=== PATIENT | female | born 1995 | race Caucasian/White ===

== ENCOUNTER → 2021-03-16 03:00 | Outpatient (CLI) | payer OTHER, SELFPAY ==
[2021-03-16 17:42] LABS: SARS-CoV-2 RNA PCR Negative
== END ==
PROVIDERS: PCP Registered Nurse; Visit Provider Registered Nurse
DX: R68.89 Other general symptoms and signs (principal); Z20.822 Contact with and (suspected) exposure to COVID-19
CPT/HCPCS: C9803; U0003; U0005

== ENCOUNTER 2024-11-01 18:13 | Emergency (ER) | payer OTHER, SELFPAY ==
[2024-11-01 18:15] VITALS: BP 125/70; PULSE 137; RESP 20; TEMP 36.7; O2SAT 98
[2024-11-01 18:41] LABS: BEDSIDEPREGUCG Negative (Negative)
[2024-11-01 18:50] LABS: Basophils Percent Auto 0.3 % (0.2-1.2); Eosinophils Absolute Auto 0.1 K/mm3 (0-0.3); Eosinophils Percent Auto 0.5 % (0-4.4); Hematocrit 36.3 % (37.0-47.0); Hemoglobin 11.6 g/dL (12.0-15.0); Immature Granulocyte Absolute 0.04 K/mm3 (0.00-0.031); Immature Granulocyte Percent A 0.3 % (0-0.5); Lymphocytes Absolute Auto 2.94 K/mm3 (0.9-3.2); Lymphocytes Percent Auto 25.3 % (18.3-44.2); Mean Corpuscular Volume 93.8 fl (80-100); Mean Platelet Volume 9.1 fl (7.4-10.4); Monocytes Absolute Auto 0.9 K/mm3 (0.1-0.6); Monocytes Percent Auto 7.4 % (2.6-8.5); Neutrophils Absolute Auto 7.7 K/mm3 (1.3-6.7); Neutrophils Percent Auto 66.2 % (45.5-73.1); Platelet Count Result 454 k/mm3 (150-375); Red Blood Count 3.87 M/mm3 (4.2-5.4); White Blood Count 11.6 K/mm3 (4.5-10.0)
[2024-11-01 18:59] LABS: Alanine Aminotransferase 26 U/L (6-35); Albumin Level 4.3 g/dL (3.5-5.1); Alkaline Phosphatase 60 U/L (38-126); Anion Gap 11 mmol/L (4-12); Aspartate Amino Transferase 29 U/L (14-36); Bilirubin,Total 0.2 mg/dL (0.2-1.3); Blood Urea Nitrogen 11 mg/dL (7-17); Carbon Dioxide 20 mmol/L (22-30); Chloride 109 mmol/L (98-107); Estimated CRCL calculation 104 ml/min; Estimated Glomerular Filt Rate > 60; Glucose 133 mg/dL (65-110); Potassium 3.6 mmol/L (3.4-5.0); Sodium 140 mmol/L (137-145); Total Protein 7.2 g/dL (6.3-8.2)
[2024-11-01 19:01] LABS: Ethanol < 10 mg/dL (<10)
[2024-11-01 19:05] LABS: Add Urine Microscopic? NO; Appearance Urine Clear (Clear); Bilirubin Urine Negative (Negative); Blood Urine Negative (Negative); Color Urine Yellow (Yellow); Glucose Urine UA Negative (Negative); Ketones Urine Negative (Negative); Leukocyte Esterase Ur Negative LEU/UL (Negative); Nitrate Urine Negative (Negative); Protein Urine Negative (Negative); Specific Grav Ur 1.025 (1.001-1.035)
[2024-11-01 19:22] LABS: Amphetamine Screen Urine Negative (Negative); Barbiturate Screen Urine Negative (Negative); Benzodiazepines Screen Urine Negative (Negative); Cannabinoid Screen Urine Positive (Negative); Cocaine Screen Urine Negative (Negative); Methadone Screen Urine Negative (Negative); Opiate Screen Urine Negative (Negative); Phencyclidine Screen Urine Negative (Negative)
[2024-11-01 19:29] LABS: Influenza A QL RT-PCR Negative (Negative); Influenza B QL RT-PCR Negative (Negative); RSV RNA, RT-PCR Negative (Negative); SARS-CoV-2 RNA PCR Negative (Negative)
[2024-11-01 19:34] VITALS: BP 130/69; PULSE 113; RESP 18; TEMP 36.6; O2SAT 100
--- NOTE | 2024-11-01 20:23 | ED.GENADULT ---
HPI - General Adult General Chief complaint: Psychiatric Symptoms Stated complaint: mental health crisis Time Seen by Provider: 11/01/24 19:02 History of Present Illness HPI narrative: Patient is a 28-year-old female who presents to the emergency department this evening complaining of depression, feeling overwhelmed and suicidal thoughts. Patient states that she has been having intermittent suicidal thoughts and this is not a new thing for her, however, she denies any current or any plan to harm herself. Admits that she does have a history of anxiety, depression and bipolar disorder and admits that she has been taking her medications as prescribed. States that she recently quit her job which has not helped with her depression and also just is not happy with the state of things in the world right now. Denies any homicidal ideations. No additional symptoms or concerns at this time. Patient denies any previous psychiatric hospitalizations. Related Data Allergies Allergy/AdvReac Type Severity Reaction Status Date / Time No Known Allergies Allergy Verified 11/01/24 18:21 Review of Systems Review of Systems: All systems are reviewed and are negative unless stated otherwise in the HPI. 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 HEENT: PERRL, no rhinorrhea, no post nasal drip, oropharynx clear. Neck: Trachea midline, no JVD, no lymphadenopathy. Cardiovascular: Regular rate and rhythm, no murmurs, rubs or gallops, no peripheral edema. Respiratory: Clear to auscultation bilaterally, no tachypnea, no wheezing, no rhonchi, no rubs, no respiratory distress. Abdomen: Soft, nontender, nondistended, no rebound, no guarding, no peritoneal signs. Musculoskeletal: No joint swelling or deformity, normal muscle tone. Skin: No rashes or petechia, no signs of infection. Psychiatric: Alert and oriented, normal behavior and judgment for situation. Neurological: Alert and oriented to person, place, and time. Follows all commands. No focal deficits, speech is clear and fluent. Course Vital Signs Vital signs: Vital Signs Temperature 98.0 F 11/01/24 18:15 Pulse Rate 137 H 11/01/24 18:15 Respiratory Rate 20 11/01/24 18:15 Blood Pressure 125/70 11/01/24 18:15 Pulse Oximetry 98 11/01/24 18:15 Oxygen Delivery Room Air 11/01/24 18:15 Temperature 98 F 11/01/24 19:34 Pulse Rate 113 H 11/01/24 19:34 Respiratory Rate 18 11/01/24 19:34 Blood Pressure 130/69 11/01/24 19:34 Pulse Oximetry 100 11/01/24 19:34 Oxygen Delivery Room Air 11/01/24 18:15 Medical Decision Making MDM Narrative Medical decision making narrative: The patient was evaluated by myself in the emergency department. History is obtained from patient who is an independent historian and physical exam was performed. External medical records were reviewed at this time. IV was established and pertinent tests were ordered. Laboratory results obtained revealing no acute process. Urinalysis unremarkable, UDS positive for cannabinoids. Patient is now medically cleared pending psychiatric evaluation. Differential diagnosis considerations include at acute stress reaction, depression, anxiety, suicidal versus homicidal ideation, acute psychosis, manic episode. Comorbidities impacting this visit include history of bipolar, depression and anxiety. I have evaluated and discussed social determinants of health with the patient that could potentially impact subsequent diagnosis and treatment plans. Patient was evaluated by our psychiatric team who recommended outpatient follow-up as patient is currently denying any active suicidal homicidal thoughts. Patient feels comfortable being discharged to her friend's house and her friend feels comfortable watching over her. On repeat assessment of the patient, reevaluation revealed that the patient is doing well and is in no acute distress. Patient symptoms have improved since she arrived to our emergency department. Repeat vital signs were all reviewed and noted to be stable. Differential diagnosis and treatment plan were discussed with the patient at bedside. Patient agrees with discussion and after shared medical decision making agrees with discharge. All questions were answered to the patient's satisfaction. Patient will follow up with her psychiatrist/therapist in 3-5 days. Patient was provided with strict return precautions and instructed to return to the emergency department if any new or worsening symptoms develop. The patient was discharged to the care of her friend who states that they will be spending time with her until she feels better. Vital Signs Vital Signs: Vital Signs Temperature 98.0 F 11/01/24 18:15 Pulse Rate 137 H 11/01/24 18:15 Respiratory Rate 20 11/01/24 18:15 Blood Pressure 125/70 11/01/24 18:15 Pulse Oximetry 98 11/01/24 18:15 Oxygen Delivery Room Air 11/01/24 18:15 Temperature 98 F 11/01/24 19:34 Pulse Rate 113 H 11/01/24 19:34 Respiratory Rate 18 11/01/24 19:34 Blood Pressure 130/69 11/01/24 19:34 Pulse Oximetry 100 11/01/24 19:34 Oxygen Delivery Room Air 11/01/24 18:15 Lab Data 11/01/24 18:37 11/01/24 18:37 Labs: Lab Results 11/01/24 11/01/24 Range/Units 18:37 18:39 WBC 11.6 H (4.5-10.0) K/mm3 RBC 3.87 L (4.2-5.4) M/mm3 Hgb 11.6 L (12.0-15.0) g/dL Hct 36.3 L (37.0-47.0) % MCV 93.8 (80-100) fl MCH 30.0 (26-34) pg MCHC 32.0 (32-36) g/dl RDW 13.0 (11.5-14.5) % Plt Count 454 H (150-375) k/mm3 MPV 9.1 (7.4-10.4) fl Immature Gran % (Auto) 0.3 (0-0.5) % Neut % (Auto) 66.2 (45.5-73.1) % Lymph % (Auto) 25.3 (18.3-44.2) % [place] % (Auto) 7.4 (2.6-8.5) % Eos % (Auto) 0.5 (0-4.4) % Baso % (Auto) 0.3 (0.2-1.2) % Lymph # (Auto) 2.94 (0.9-3.2) K/mm3 [place] # (Auto) 0.9 H (0.1-0.6) K/mm3 Eos # (Auto) 0.1 (0-0.3) K/mm3 Baso # (Auto) 0.0 (0.0-0.1) K/mm3 Abs Immat Gran (auto) 0.04 H (0.00-0.031) K/mm3 Absolute Neuts (auto) 7.7 H (1.3-6.7) K/mm3 Absolute Nucleated RBC 0.000 (0.0-0.012) K/mm3 Nucleated RBC % 0.0 (0.0-0.2) % Sodium 140 (137-145) mmol/L Potassium 3.6 (3.4-5.0) mmol/L Chloride 109 H (98-107) mmol/L Carbon Dioxide 20 L (22-30) mmol/L Anion Gap 11 (4-12) mmol/L BUN 11 (7-17) mg/dL Creatinine 0.73 (0.7-1.0) mg/dL Estim Creat Clear Calc 104 ml/min Estimated GFR > 60 (59 - ) Glucose 133 H (65-110) mg/dL Calcium 9.0 (8.4-10.2) mg/dL Total Bilirubin 0.2 (0.2-1.3) mg/dL AST 29 (14-36) U/L ALT 26 (6-35) U/L Alkaline Phosphatase 60 (38-126) U/L Total Protein 7.2 (6.3-8.2) g/dL Albumin 4.3 (3.5-5.1) g/dL TSH (Reflex) 1.440 (0.465-4.68) uIU/mL Urine Color Yellow (Yellow) Urine Appearance Clear (Clear) Urine pH 6.0 (5.0-9.0) Ur Specific [place] 1.025 (1.001-1.035) Urine Protein Negative (Negative) mg/dL Urine Glucose (UA) Negative (Negative) mg/dL Urine Ketones Negative (Negative) mg/dL Ur Blood (Man) Negative (Negative) Urine Nitrate Negative (Negative) Urine Bilirubin Negative (Negative) Urine Urobilinogen 1.0 (<2.0) mg/dL Leukocyte Esterase Rfl Negative (Negative) TANNER/UL POC Urine HCG, Qual Negative (Negative) Urine Opiates Screen Negative (Negative) Urine Methadone Screen Negative (Negative) Ur Barbiturates Screen Negative (Negative) Ur Phencyclidine Scrn Negative (Negative) Ur Amphetamine Screen Negative (Negative) U Benzodiazepines Scrn Negative (Negative) Urine Cocaine Screen Negative (Negative) U Cannabinoids Screen Positive A (Negative) Ethyl Alcohol < 10 (<10) mg/dL Influenza A (RT-PCR) Negative (Negative) Influenza B (RT-PCR) Negative (Negative) RSV (RT-PCR) Negative (Negative) SARS-CoV-2 RNA (RT-PCR) Negative (Negative) Discharge Plan Discharge Clinical Impression: Acute stress reaction Patient Disposition: Home Condition: Improved Instructions: Antibiotic Form, Bipolar Disorder (ED), Depression (ED), Anxiety (ED) Additional Instructions: Please follow-up with your therapist/psychiatrist within the next 3-5 days. Continue taking your medications as prescribed. Return to ED if any new or worsening symptoms develop. Patient Language: Telugu Prescriptions: No Action norethindrone-e.estradiol-iron [Loestrin Fe 1.5/30 (28-Day)] 1.5 mg-30 mcg (21)/75 mg (7) tablet 1 tablet PO DAILY Qty: 84 3RF Follow-up/Referrals: Karina,CLARENCE Beckford [Primary Care Provider] - 3 Days Time of Disposition: 22:57
[2024-11-01 23:03] VITALS: BP 99/75; PULSE 107; RESP 16; TEMP 36.5; O2SAT 99
--- NOTE | 2024-11-01 23:07 | PC.NURSE ---
Pt was evaluate by CRISIS. Pt was given a safety plan and went home with friend.
== END 2024-11-01 23:00 | disposition home or self-care (01) ==
PROVIDERS: Emergency Medicine; Emergency Provider Emergency Medicine; PCP Registered Nurse
DX: F43.0 Acute stress reaction (principal); Z20.822 Contact with and (suspected) exposure to COVID-19
CPT/HCPCS: 36415; 80053; 80307; 81003; 81025; 82077; 84443; 85025; 87637; 99284

== ENCOUNTER 2024-12-09 17:26 | Emergency (ER) | payer OTHER, SELFPAY ==
[2024-12-09 17:33] VITALS: BP 103/88; PULSE 91; RESP 18; TEMP 36.4; O2SAT 98
--- NOTE | 2024-12-09 17:43 | ED.EAR ---
HPI - Ear Problem General Chief complaint: Ear Stated complaint: Earache Time Seen by Provider: 12/09/24 17:27 Source: patient Mode of arrival: ambulatory Limitations: no limitations History of Present Illness HPI Narrative: Pt is a 29 y/o female presenting with c/o atraumatic R. ear pain. Pain began around 1pm today. Reports associated otorrhea. Reports recent swimming further admitting to swimming even after pain began. No tx initiated [employer]. Denies any additional complaints. Related Data Home Medications ?Medication ?Instructions ?Recorded ?Confirmed ?Last Taken ?Type bupropion HCl 150 mg 24 hr tablet, mg PO 12/09/24 Unknown History extended release lamotrigine 200 mg tablet,extended mg PO 12/09/24 Unknown History release 24 hr Allergies Allergy/AdvReac Type Severity Reaction Status Date / Time No Known Allergies Allergy Verified 12/09/24 17:38 Review of Systems Review of Systems: All systems reviewed & are unremarkable except as noted in HPI and below PMFSH Social History Social History Social History: Single Smoking status: Never smoker Second hand tobacco smoke exposure: No Alcohol intake: current Alcohol use details: occasionally Substance use: never Substance use type: marijuana Living arrangements: with family Occupation/Education: student 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 HEAD: Normocephalic, atraumatic. EYES: EOMI. No redness or drainage. Conjunctivae normal. ENT: White, cheesy discharge noted to saúl. auditory canals with mild edema. No mastoid tenderness. Mucous membranes pink and moist. Nares clear. No rhinorrhea. TMs normal bilaterally. Throat normal. Uvula midline. NECK: Normal AROM. Supple. No lymphadenopathy. CHEST: No respiratory distress. Clear to auscultation. HEART: Regular rate MUSCULOSKELETAL: No bony tenderness. EXTREMITIES: Normal range of motion. No edema. SKIN: Warm, dry, no rash. Capillary refill normal. Normal skin turgor. NEURO: No focal deficits. Alert and oriented x3. Gait steady. PSYCH: Normal affect. No signs of depression or anxiety. Course Course Level of Care: Express Care Visit Vital Signs Vital signs: Vital Signs Temperature 97.6 F 07/16/25 17:33 Pulse Rate 91 12/09/24 17:33 Respiratory Rate 18 12/09/24 17:33 Blood Pressure 103/88 12/09/24 17:33 Pulse Oximetry 98 12/09/24 17:33 Oxygen Delivery Room Air 12/09/24 17:33 Temperature 97.6 F 12/09/24 17:33 Pulse Rate 91 12/09/24 17:33 Respiratory Rate 18 12/09/24 17:33 Blood Pressure 103/88 12/09/24 17:33 Pulse Oximetry 98 12/09/24 17:33 Oxygen Delivery Room Air 12/09/24 17:33 Medical Decision Making Vital Signs Vital Signs: Vital Signs Temperature 97.6 F 12/09/24 17:33 Pulse Rate 91 12/09/24 17:33 Respiratory Rate 18 12/09/24 17:33 Blood Pressure 103/88 12/09/24 17:33 Pulse Oximetry 98 12/09/24 17:33 Oxygen Delivery Room Air 12/09/24 17:33 Temperature 97.6 F 12/09/24 17:33 Pulse Rate 91 12/09/24 17:33 Respiratory Rate 18 12/09/24 17:33 Blood Pressure 103/88 12/09/24 17:33 Pulse Oximetry 98 12/09/24 17:33 Oxygen Delivery Room Air 12/09/24 17:33 Discharge Plan Discharge Clinical Impression: Otitis externa Qualifiers: Otitis externa type: swimmer's ear Chronicity: acute Laterality: bilateral Qualified Code(s): H60.333 - Swimmer's ear, bilateral Patient Disposition: Home Condition: Stable Instructions: Antibiotic Form, Swimmer's Ear (AC) Additional Instructions: Go straight to ER should your symptoms become worse or should any new symptoms develop Patient Language: Tristanian Prescriptions: New ofloxacin 0.3 % drops 5 drp EACH EAR BID 10 Days Qty: 10 0RF No Action bupropion HCl 150 mg tablet extended release 24 hr PO lamotrigine 200 mg tablet extended release 24hr PO norethindrone-e.estradiol-iron [Loestrin Fe 1.5/30 (28-Day)] 1.5 mg-30 mcg (21)/75 mg (7) tablet 1 tablet PO DAILY Qty: 84 3RF Follow-up/Referrals: Karina,CLARENCE Beckford [Primary Care Provider] - 12/09/24 Time of Disposition: 17:44
== END 2024-12-09 17:50 | disposition home or self-care (01) ==
PROVIDERS: Emergency Provider Registered Nurse; PCP Registered Nurse
DX: H60.333 Swimmer's ear, bilateral (principal)
CPT/HCPCS: 99213; G0463